=== PATIENT | male | born 1955 | race Caucasian/White ===

== ENCOUNTER 2017-09-11 18:07 | Emergency (ER) | payer OTHER ==
--- NOTE | 2017-09-11 19:48 | ER ---
Nurse's Notes [facility] Name: Ector Hanson Age: 62 yrs Sex: Male : 1955 Arrival Date: 09/11/2017 Time: 18:11 Bed 10 Private MD: Helio Ramos B Diagnosis: Cellulitis of left toe Presentation: 09/11 18:24 Presenting complaint: Patient states: "I cut my toe (left) and I have lymphedema in lk1 that leg. We tried to fix it ourselves but it seems to be infected.". Transition of care: patient was not received from another setting of care. Onset of symptoms was September 07, 2017. Risk Assessment: Do you want to hurt yourself or someone else? Patient reports no desire to harm self or others. Initial Sepsis Screen: Does the patient meet any 2 criteria? No. Patient's initial sepsis screen is negative. Does the patient have a suspected source of infection? No. Patient's initial sepsis screen is negative. Care prior to arrival: None. 18:24 Method Of Arrival: Ambulatory lk1 18:24 Acuity: DAVID 3 lk1 Historical: - Allergies: 18:26 No Known Drug Allergies; lk1 - PMHx: 18:26 lymphedema; lk1 - PSHx: 18:26 Hernia repair; lk1 - Immunization history:: Adult Immunizations up to date. - Social history:: Smoking status: Patient/guardian denies using tobacco. - Ebola Screening: : No symptoms or risks identified at this time. Screenin:07 Abuse screen: Denies threats or abuse. Nutritional screening: No deficits noted. bb Tuberculosis screening: No symptoms or risk factors identified. Fall Risk None identified. Assessment: 20:07 General: Appears in no apparent distress. Behavior is calm, cooperative. Pain: bb Complains of pain in left toe. Neuro: Level of Consciousness is awake, alert, obeys commands, Oriented to person, place, time, situation. Cardiovascular: No deficits noted. Respiratory: Respiratory effort is even, unlabored. Derm: erythema to left toe. Musculoskeletal: Circulation, motion, and sensation intact. 20:09 Reassessment: pt verbalized understanding of and agrees to plan of care discharge bb instructions given pt ambulated with steady gait to exit accompanied by family. Vital Signs: 18:27 BP 130 / 93; Pulse 67; Resp 16; Temp 98.0(TE); Pulse Ox 96% on R/A; Weight 131.54 kg lk1 (R); Height 6 ft. 4 in. (193.04 cm) (R); Pain 2/10; 20:10 BP 118 / 73; Pulse 58; Resp 16 S; Temp 96.6(O); Pulse Ox 96% on R/A; bb 18:27 Body Mass Index 35.30 (131.54 kg, 193.04 cm) lk1 ED Course: 18:11 Patient arrived in ED. mr 18:12 Helio Ramos MD is Private Physician. mr 18:26 Triage completed. lk1 18:29 Arm band placed on right wrist. lk1 19:35 [facility] Callahan [facility]. jr8 19:35 Harjinder Clements MD is Attending Physician. jr8 19:47 Ariel Dunaway DPM is Referral Physician. jr8 20:07 Patient has correct armband on for positive identification. Adult w/ patient. bb 20:07 No provider procedures requiring assistance completed. Patient did not have IV access bb during this emergency room visit. Administered Medications: No medications were administered Outcome: 19:48 Discharge ordered by . jr8 20:11 Discharged to home ambulatory, with family. bb 20:11 Condition: stable 20:11 Discharge instructions given to patient, Instructed on discharge instructions, follow up and referral plans. medication usage, Demonstrated understanding of instructions, follow-up care, medications, Prescriptions given X 2. 20:11 Patient left the ED. bb Signatures: Elizabeth Staley mr Eliz Brown, RN RN bb Timbo Callahan PA PA jr Abbi Dowling RN RN lk1
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
[2017-09-11 20:25] VITALS: O2SAT 96
[2017-09-11 20:26] VITALS: BP 118/73; TEMP 96.6
== END 2017-09-11 20:11 | disposition home or self-care (01) ==
LOC: ER 18:07
DX: L03.032 Cellulitis of left toe (principal); I89.0 Lymphedema, not elsewhere classified
CPT/HCPCS: 99282

== ENCOUNTER 2017-12-25 20:25 | Emergency (ER) | payer OTHER ==
[2017-12-25] MEDS ORDERED: IBUPROFEN 400 MG TAB ONE (21:31)
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
[2017-12-25 22:17] VITALS: BP 126/72; TEMP 98.2; O2SAT 98
--- NOTE | 2017-12-26 07:23 | RAD REPORT ---
EXAM DESCRIPTION: Shoulder Right 2 View - 12/25/2017 9:33 pm CLINICAL HISTORY: Fall, arm pain COMPARISON: None. TECHNIQUE: Internal and external rotation views of the right shoulder were obtained. FINDINGS: There is no fracture or dislocation. No spurring at the AC joint. There is mild degenerati ve change to the undersurface of the acromion. No abnormal soft tissue calcifications. No acute or vasquez spicious findings. IMPRESSION: Minimal degenerative change with no acute shoulder finding.
== END 2017-12-25 22:13 | disposition home or self-care (01) ==
LOC: ER 20:25
DX: M25.511 Pain in right shoulder (principal); Z79.82 Long term (current) use of aspirin
CPT/HCPCS: 99284

== ENCOUNTER 2018-09-28 07:04 | Day surgery (SDC) | payer OTHER ==
[2018-09-28] MEDS: PHENYLEPHRINE 10% OPTH 5ML ONE ×3 (08:08→08:18)
[2018-09-28] MEDS: CYCLOPENTOLATE 1% OPTH 2 ML ONE ×3 (08:08→08:18)
[2018-09-28] MEDS ORDERED: TETRACAINE HCL 0.5% 4ML OPTH ONE (08:16)
[2018-09-28] MEDS ORDERED: LIDOCAINE 2% MPF 5 ML VIAL ONE (08:16)
[2018-09-28] MEDS ORDERED: BUPIVACAINE 0.25% PF 10 ML VIAL ONE (08:16)
[2018-09-28] MEDS ORDERED: NA CHLORIDE 0.9% 500 ML ONE (08:17)
[2018-09-28] MEDS: LIDOCAINE HCL/PF 3.5% OPTH GEL ONE ×2 (08:43→09:03)
[2018-09-28] MEDS ORDERED: FENTANYL CITR 100 MCG/2 ML ONE (08:55)
[2018-09-28] MEDS ORDERED: MIDAZOLAM HCL 2 MG/2 ML INJ ONE (08:56)
[2018-09-28] MEDS ORDERED: NS 0.9% VIAL 10 ML ONE (09:02)
[2018-09-28] MEDS ORDERED: BALANCED SALT IRRIG PLAIN 500 ML BTL IRR ONE (09:02)
[2018-09-28] MEDS ORDERED: EPINEPHRINE/PF 1 MG/ML AMP ONE (09:02)
[2018-09-28] MEDS ORDERED: DUOVISC 1 KIT OPTH ONE (09:03)
[2018-09-28] MEDS ORDERED: LIDOCAINE 1% MPF 2 ML AMPULE ONE (09:03)
[2018-09-28] MEDS ORDERED: BSS OPTHALMIC SOL 15 ML BOT OPTH ONE (09:05)
[2018-09-28] MEDS: MOXIFLOXACIN HCL 10 DROPS/ML **OR USE OPTH ONE ×2 (09:17→09:32)
--- NOTE | 2018-09-28 09:38 | P.BOP ---
Preoperative diagnosis: Nuclear sclerotic, anterior and posterior subcapsular cataract OD Postoperative diagnosis: Same Primary procedure: Phacoemulsification with IOL OD Estimated blood loss: None Anesthesia: Local (Subtenon's infusion with anesthesia for cataract surgery) Complications: None Implants: [id number] +20.5 Transferred to: Other (Day surgery) Condition: Good
[2018-09-28 10:15] VITALS: BP 131/87; TEMP 97.7; O2SAT 96
--- NOTE | 2018-09-28 11:26 | OP ---
Date of Procedure: 09/28/2018 Surgeon: Cris Combs MD Anesthesiologist: Umer Andrews CRNA and Herson Childs MD Preoperative Diagnosis: Nuclear sclerotic posterior and anterior subcapsular cataract, right eye. Operation Performed: Phacoemulsification with intraocular lens implant, right eye. Anesthesia: Per cataract surgery. Complications: None. Description Of Procedure: In the operating room the patient was prepped and draped in the usual ster ile fashion for ophthalmic surgery. A lid speculum was placed in the right eye. Two paracentesis si denise were made superiorly and inferiorly in the limbal cornea. Viscoat was placed in the anterior salud mber and a crescent blade was used to make a corneal groove and tunnel, and a keratome was used to en ter the anterior chamber. Provisc was placed in the anterior chamber and a 360 degree capsulotomy wa s performed with a cystitome. The lens was hydrodissected with BSS and rotated freely. The lens was removed with a stop and chop technique. 8.52 phaco CDE was used to remove the lens. Residual ant x was removed with the irrigation and aspiration. Provisc was placed in the capsular bag. A ZCB00 + 20.5 lens was placed in the capsular bag without complications. Irrigation and aspiration was used t o remove residual viscoelastic. The paracentesis sites were hydrated with BSS. The wound and parace ntesis sites were inspected and found to be watertight. Vigamox 0.07 cc was placed intracamerally at the end of the procedure. The eye was irrigated with balanced salt solution. The eye was patched w ith a soft cotton patch and Duque metal shield. The patient was returned to day surgery in good condition. Comments: Akten was placed in the eye in Day Surgery and irrigated out of the eye with BSS in the OR . Preservative free 1% lidocaine was placed in the anterior chamber prior to Viscoat. Discharge Instructions: Mr. Hanson is discharged to home in good condition and is to follow up with Dr. Combs in the morning. EMMANUEL/MELLISSA Voice ID: [id number] Report ID: [id number]
== END 2018-09-28 10:05 | disposition home or self-care (01) ==
LOC: OR 07:04
PROVIDERS: ATTEND Ophthalmology Retina Specialist
PROC: 08RJ3JZ Replacement of Right Lens with Synthetic Substitute, Percutaneous Approach (ICD-10-PCS; principal; 2018-09-28 09:10)
DX: H25.11 Age-related nuclear cataract, right eye (principal); H25.031 Anterior subcapsular polar age-related cataract, right eye; E07.9 Disorder of thyroid, unspecified; E66.01 Morbid (severe) obesity due to excess calories; Z68.35 Body mass index [BMI] 35.0-35.9, adult; Z83.3 Family history of diabetes mellitus; Z82.49 Family history of ischemic heart disease and other diseases of the circulatory system
CPT/HCPCS: J0171; J2001; J2250; J3010

== ENCOUNTER 2020-09-06 17:04 | Emergency (ER) | payer OTHER ==
--- NOTE | 2020-09-06 18:42 | EDPHYS ---
Physician Documentation [facility] Name: Ector Hanson Age: 65 yrs Sex: Male : 1955 Arrival Date: 09/06/2020 Time: 17:06 Bed 5 Private MD: ED Physician Keenan Salmeron HPI: 09/06 18:37 This 65 yrs old Male presents to ER via Ambulatory with complaints of Ear cp Pain. 18:37 The patient presents with pain, that is acute. The complaints affect the right ear. cp Onset: The symptoms/episode began/occurred 2 day(s) ago. Associated signs and symptoms: Pertinent negatives: fever, rhinorrhea, sinus trouble, sore throat, vomiting. Severity of symptoms: in the emergency department the symptoms are unchanged despite home interventions. Historical: - Allergies: 17:19 No Known Drug Allergies; tw2 - Home Meds: 17:19 aspirin 81 mg Oral TbEC 1 tab once daily [Active]; tw2 - PMHx: 17:19 lymphedema; tw2 - Immunization history:: Adult Immunizations. - Social history:: Smoking status: . ROS: 18:38 Eyes: Negative for injury, pain, redness, and discharge. cp 18:38 Constitutional: Negative for body aches, chills, fever. 18:38 ENT: Positive for ear pain, Negative for sore throat, difficulty swallowing, difficulty handling secretions. 18:38 Respiratory: Negative for cough, shortness of breath, wheezing. 18:38 Abdomen/GI: Negative for abdominal pain, nausea, vomiting, and diarrhea. 18:38 Neuro: Negative for headache. 18:38 All other systems are negative. Exam: 18:39 Head/Face: Normocephalic, atraumatic. cp 18:39 Constitutional: The patient appears in no acute distress, alert, awake, comfortable, non-toxic, well developed, well nourished. 18:39 Eyes: Periorbital structures: appear normal, Conjunctiva: normal, no exudate, no injection, Sclera: no appreciated abnormality, Lids and lashes: appear normal, bilaterally. 18:39 ENT: External ear(s): are unremarkable, Ear canal(s): purulent discharge, that is minimal, in the right canal, swelling, that is minimal, of the right canal, Examination of the other ear shows no obvious abnormality, Nose: is normal, Mouth: Lips: moist, Oral mucosa: moist, Posterior pharynx: Airway: no evidence of obstruction, patent. 18:39 Chest/axilla: Inspection: normal. 18:39 Cardiovascular: Rate: normal. 18:39 Respiratory: the patient does not display signs of respiratory distress, Respirations: normal. Vital Signs: 17:17 BP 141 / 81; Pulse 60; Resp 17; Temp 97.9(TE); Pulse Ox 99% on R/A; Weight 135.17 kg tw2 (R); Height 6 ft. 4 in. (193.04 cm); 17:17 Body Mass Index 36.27 (135.17 kg, 193.04 cm) tw2 MDM: 18:37 Patient medically screened. cp Administered Medications: No medications were administered Disposition: 09/06/20 18:42 Discharged to Home. Impression: Otitis externa in other diseases classified elsewhere, right ear. - Condition is Stable. - Discharge Instructions: Otitis Externa. - Prescriptions for Ciprodex 0.3- 0.1 % Otic Drops, Suspension - instill 4 drops by OTIC route every 12 hours for 7 days , for ears ONLY. Instill drops in right ear canal as directed; 1 Container. - Medication Reconciliation Form, Thank You Letter, Antibiotic Education, Prescription Opioid Use form. - Follow up: Nasreen Newberry MD; When: 2 - 3 days; Reason: Worsening of condition. - Problem is new. - Symptoms are unchanged. Signatures: Anuj Varner PA PA cp Elizabeth Alberto RN RN Ariana Betts RN RN tw2 Corrections: (The following items were deleted from the chart) 18:49 18:42 09/06/2020 18:42 Discharged to Home. Impression: Otitis externa in other diseases hb classified elsewhere, right ear. Condition is Stable. Forms are Medication Reconciliation Form, Thank You Letter, Antibiotic Education, Prescription Opioid Use. Follow up: Nasreen Newberry; When: 2 - 3 days; Reason: Worsening of condition. Problem is new. Symptoms are unchanged. cp
--- NOTE | 2020-09-06 18:42 | ER ---
Nurse's Notes [facility] Name: Ector Hanson Age: 65 yrs Sex: Male : 1955 Arrival Date: 09/06/2020 Time: 17:06 Bed 5 Private MD: Diagnosis: Otitis externa in other diseases classified elsewhere, right ear Presentation: 09/06 17:17 Chief complaint: Patient states: my RIGHT ear has some type of infection, it feels like tw2 something is in there. Friday night i jumped in the pool and it has felt like i cant get the water out of my ear. Coronavirus screen: At this time, the client does not indicate any symptoms associated with coronavirus-19. Ebola Screen: Patient denies travel to an Ebola-affected area in the 21 days before illness onset. Initial Sepsis Screen: Does the patient meet any 2 criteria? No. Patient's initial sepsis screen is negative. Does the patient have a suspected source of infection? No. Patient's initial sepsis screen is negative. Risk Assessment: Do you want to hurt yourself or someone else? Patient reports no desire to harm self or others. Onset of symptoms was September 06, 2020. 17:17 Method Of Arrival: Ambulatory tw2 17:17 Acuity: DAVID 4 tw2 Triage Assessment: 17:19 General: Appears in no apparent distress. Behavior is calm, cooperative, appropriate tw2 for age. Pain: Complains of pain in right ear. EENT: Reports pain in right ear. Historical: - Allergies: 17:19 No Known Drug Allergies; tw2 - Home Meds: 17:19 aspirin 81 mg Oral TbEC 1 tab once daily [Active]; tw2 - PMHx: 17:19 lymphedema; tw2 - Immunization history:: Adult Immunizations. - Social history:: Smoking status: . Screenin:35 Abuse screen: Denies threats or abuse. Denies injuries from another. Nutritional hb screening: No deficits noted. Tuberculosis screening: No symptoms or risk factors identified. Fall Risk None identified. Assessment: 18:35 General: Appears in no apparent distress. Behavior is calm, cooperative. Pain: Pain hb currently is 3 out of 10 on a pain scale. Neuro: Level of Consciousness is awake, alert, obeys commands, Oriented to person, place, time, situation. Cardiovascular: Patient's skin is warm and dry. Respiratory: Respiratory effort is even, unlabored, Respiratory pattern is regular, symmetrical. GI: No signs and/or symptoms were reported involving the gastrointestinal system. : No signs and/or symptoms were reported regarding the genitourinary system. EENT: Reports right ear pain. Derm: Skin is pink, warm \T\ dry. Musculoskeletal: No signs and/or symptoms reported regarding the musculoskeletal system. Vital Signs: 17:17 BP 141 / 81; Pulse 60; Resp 17; Temp 97.9(TE); Pulse Ox 99% on R/A; Weight 135.17 kg tw2 (R); Height 6 ft. 4 in. (193.04 cm); 17:17 Body Mass Index 36.27 (135.17 kg, 193.04 cm) tw2 ED Course: 17:06 Patient arrived in ED. ds1 17:18 Triage completed. tw2 17:19 Arm band placed on. tw2 18:33 Anuj Varner PA is PHCP. cp 18:33 Keenan Salmeron MD is Attending Physician. cp 18:35 Patient has correct armband on for positive identification. Call light in reach. Side hb rails up X 1. 18:41 Nasreen Newberry MD is Referral Physician. cp 18:48 No provider procedures requiring assistance completed. Patient did not have IV access hb during this emergency room visit. Administered Medications: No medications were administered Outcome: 18:42 Discharge ordered by MD. cp 18:48 Discharged to home ambulatory. hb 18:48 Condition: stable 18:48 Discharge instructions given to patient, Instructed on discharge instructions, follow up and referral plans. medication usage, Demonstrated understanding of instructions, follow-up care, medications, Prescriptions given X 1. 18:49 Patient left the ED. hb Signatures: Ksenia Morales ds1 Anuj Varner PA PA cp Elizabeth Alberto RN RN Ariana Betts RN RN tw2
[2020-09-06 19:18] VITALS: BP 141/81; TEMP 97.9; O2SAT 99
== END 2020-09-06 18:49 | disposition home or self-care (01) ==
LOC: ER 17:04
DX: H60.91 Unspecified otitis externa, right ear (principal); Z79.82 Long term (current) use of aspirin

== ENCOUNTER 2020-12-21 06:18 | Day surgery (SDC) | payer OTHER ==
[2020-12-21] MEDS ORDERED: MOXIFLOXACIN HCL 0.5% 3ML OPTH OPTH ONE (06:51)
[2020-12-21] MEDS ORDERED: PHENYLEPHRINE 2.5% OPTH 2 ML ONE (06:51)
[2020-12-21] MEDS ORDERED: KETOROLAC OPTHALMIC 5 ML BOT ONE (06:51)
[2020-12-21] MEDS ORDERED: CYCLOPENTOLATE 2% OPTH 2 ML ONE (06:51)
[2020-12-21] MEDS ORDERED: TROPICAMIDE 1% OPTH 3 ML BOT ONE (06:51)
[2020-12-21] MEDS ORDERED: Ringers Lactate 1,000 ML IV ONE (06:52)
[2020-12-21] MEDS ORDERED: BSS PLUS 500 ML BOTTLE IRR ONE (07:22)
[2020-12-21] MEDS ORDERED: EPINEPHRINE/PF 1 MG/ML AMP ONE (07:22)
[2020-12-21] MEDS ORDERED: TOBRADEX 0.3-0.1% OPTH OINTMENT ONE (07:22)
[2020-12-21] MEDS ORDERED: BSS OPTHALMIC SOL 15 ML BOT OPTH ONE ×2 (07:22→08:22)
[2020-12-21] MEDS ORDERED: DUOVISC 1 KIT OPTH ONE (07:23)
[2020-12-21] MEDS ORDERED: POVIDONE-IODINE 5% EYE DROPS ONE (07:23)
[2020-12-21] MEDS ORDERED: FENTANYL CITR 100 MCG/2 ML ONE (07:34)
[2020-12-21] MEDS ORDERED: dexAMETHasone 10 MG/ML VIAL ONE (07:34)
[2020-12-21] MEDS ORDERED: MIDAZOLAM HCL 2 MG/2 ML INJ ONE (07:34)
[2020-12-21] MEDS ORDERED: propofoL 200 MG/20 ML VIAL IV ONE (07:34)
[2020-12-21] MEDS ORDERED: ONDANSETRON 4 MG/2 ML VIAL ONE (07:35)
[2020-12-21] MEDS ORDERED: KETOROLAC 30 MG/ML INJ ONE (07:35)
[2020-12-21] MEDS ORDERED: LIDOCAINE 2% MPF 5 ML VIAL ONE (07:35)
[2020-12-21] MEDS ORDERED: LIDOCAINE 1% MPF 2 ML AMPULE ONE (08:15)
[2020-12-21] MEDS ORDERED: HYALURONATE SODIUM 10 MG/ML SYR OPTH ONE (08:15)
[2020-12-21] MEDS: LIDOCAINE HCL/PF 3.5% OPTH GEL ONE ×2 (08:17→08:23)
[2020-12-21 10:16] VITALS: TEMP 97.1; O2SAT 100
[2020-12-21 10:17] VITALS: BP 133/67
--- NOTE | 2020-12-21 20:41 | OP ---
Date of Procedure: 12/21/2020 Surgeon: Saul Bardales MD Home Health Nurse Licensed Practical: None. Preoperative Diagnosis: Visually significant cataract, left eye. Postoperative Diagnosis: Visually significant cataract, left eye. Procedure Performed: Cataract extraction of left eye with placement of sulcus intraocular lens with optic capture and limited anterior vitrectomy. Description Of Procedure: After being properly identified in the preoperative holding, the patient w as taken back to the operating room where a time-out was performed. The patient was then prepped and draped in the normal sterile fashion. Examination of the eye underneath the operating microscope re vealed good dilation and a cataract with an obvious posterior capsule component on retro elimination through the operating microscope. The globe was grasped with a pair of 0.12 forceps and paracentesis wounds were made superiorly and inferiorly at 6 and 12 o'clock using a 1.0 mm keratome. Preservativ e-free lidocaine was injected into the anterior chamber followed by Viscoat. The globe was then regr asped and the main phaco incision wound was made temporally with a 2.75 mm keratome [facility] a [facility] and a capsulotomy was created using a cystotome and completed with Utrata forceps. Hydrodissec tion and hydrodelineation were carried out using a King cannula. Thereafter, the lens was removed i n a systematic divide and conquer technique fashion. After all those have been made and the lens nuc leus cracked, the quadrants were removed individually. However, after removal of the first quadrant, it became apparent that there was a posterior capsule hole naso inferiorly. The phacoemulsification was stopped. Additional viscoelastic added and the phaco handpiece removed. I set up for an anteri or vitrectomy using a 20-gauge vitrector and a limited anterior vitrectomy was carried out and rom ramsay of the density of the nucleus, I was able to remove the additional nuclear components using the vit rectomy only. After the second quadrant was removed, the additional viscoelastic was added and the f inal quadrants floated into the anterior chamber and an Сергей model [id number] was loaded and injected in to the eye and placed with the lens haptics in the sulcus and the optic captured in order to create a barrier and prevent any nuclear pieces from falling into the posterior capsule. These pieces were t hen removed with the vitrector. Of note, there was a small amount of cuffing on the posterior traili ng haptic which did not completely unfold because the open capsule was not exchanged and the lens did center well with no effort. Once all of the nuclear material had been removed as much cortical mate rial as could be removed safely using the vitrector was removed and thereafter 2 interrupted 10-0 nyl on sutures were placed to the main phaco incision wound and the paracentesis wounds were hydrated. A t the conclusion, there was a well-centered 3 piece IOL in the sulcus with optic capture through the anterior capsulotomy, which was intact 360 degrees. A small amount of residual posterior capsule brodie ris which could easily be yagged later and a clear cornea. There was no loss of any nuclear material into the vitreous and the fact no vitreous was seen throughout the procedure. Again, there was note d a large portion of the procedure was carried out with the vitrector in case any vitreous did presen t itself. The pupil was well-formed and round. The patient was pressure patched over antibiotic oin tment and is to follow up with myself, Dr. Saul Bardales, at the [facility] tomorrow m tereso. Estimated Blood Loss: Less than 5 mL. Complications: As described above. There were no specimen sent or drains placed. JPG/MODL Voice ID: [id number] Report ID: [id number]
== END 2020-12-21 10:10 | disposition home or self-care (01) ==
LOC: OR 06:18
PROVIDERS: ATTEND Ophthalmology
PROC: 08B53ZZ Excision of Left Vitreous, Percutaneous Approach (ICD-10-PCS; 2020-12-21)
PROC: 08RK3JZ Replacement of Left Lens with Synthetic Substitute, Percutaneous Approach (ICD-10-PCS; principal; 2020-12-21 07:30)
DX: H26.9 Unspecified cataract (principal); H54.62 Unqualified visual loss, left eye, normal vision right eye; Z20.822 Contact with and (suspected) exposure to COVID-19
CPT/HCPCS: 66984; 67036; U0003; J0171; J2250; J3010; J7120; J2405; J1100; J2704; J3490

== ENCOUNTER 2023-06-17 17:56 | Emergency (ER) | payer OTHER ==
[2023-06-17] MEDS ORDERED: TETRACAINE HCL 0.5% 4ML OPTH ONE (19:20)
[2023-06-17] MEDS ORDERED: FLUORESCEIN SODIUM 1 MG/WRAP ONE (19:20)
--- NOTE | 2023-06-17 19:37 | EDPHYS ---
Physician Documentation [facility] Name: Ector Hanson Age: 68 yrs Sex: Male : 1955 Arrival Date: 06/17/2023 Time: 17:56 Bed 12 Private MD: ED Physician Gary Avelar HPI: 06/16 20:26 This 68 yrs old Male presents to ER via Ambulatory with complaints of Foreign Body In rt Eye. 20:26 Patient presents to the ED with redness, foreign body sensation to the left eye for rt about 3 days. Denies any discrete injury. Denies other acute complaints at this time, symptoms are mild in severity, no other aggravating or alleviating factors.. Historical: - Allergies: 18:29 No Known Allergies; nj1 - PMHx: 18:29 lymphedema; Hypothyroidism; nj1 - Immunization history:: Client reports having NOT received the Covid vaccine. - Infectious Disease History:: Denies. - Social history:: Smoking status: Patient denies any tobacco usage or history of. - Family history:: not pertinent. ROS: 20:26 Constitutional: Negative for fever, chills, and weight loss, Cardiovascular: Negative rt for chest pain, palpitations, and edema, Respiratory: Negative for shortness of breath, cough, wheezing, and pleuritic chest pain, Abdomen/GI: Negative for abdominal pain, nausea, vomiting, diarrhea, and constipation, Skin: Negative for injury, rash, and discoloration, Neuro: Negative for headache, weakness, numbness, tingling, and seizure, 20:26 Eyes: Positive for foreign body sensation, pain, Exam: 20:26 Constitutional: This is a well developed, well nourished patient who is awake, alert, rt and in no acute distress. Head/Face: Normocephalic, atraumatic. Chest/axilla: Normal chest wall appearance and motion. Nontender with no deformity. No lesions are appreciated. Cardiovascular: Regular rate and rhythm with a normal S1 and S2. No gallops, murmurs, or rubs. Normal PMI, no JVD. No pulse deficits. Abdomen/GI: Soft, non-tender, with normal bowel sounds. No distension or tympany. No guarding or rebound. No evidence of tenderness throughout. MS/ Extremity: Pulses equal, no cyanosis. Neurovascular intact. Full, normal range of motion. Neuro: Awake and alert, GCS 15, oriented to person, place, time, and situation. Cranial nerves II-XII grossly intact. Motor strength 5/5 in all extremities. Sensory grossly intact. Cerebellar exam normal. Normal gait. 20:26 Eyes: Conjunctival injection of the left eye, right eye is clear. Pupils equally round and reactive to light. No focal areas of fluorescein uptake, fluorescein stain is negative, eyelids were inverted, no foreign bodies identified.. Vital Signs: 18:27 Pulse 61; Resp 18; Temp 97.2(TE); Pulse Ox 97% ; Weight 129.27 kg; Height 6 ft. 4 in. ; nj1 19:45 BP 139 / 79; Pulse 63; Resp 17; Pulse Ox 98% ; jj7 18:27 Body Mass Index 34.69 (129.27 kg, 193.04 cm) nj1 MDM: 19:24 Patient medically screened. rt 20:26 Differential diagnosis: Conjunctivitis, foreign body, corneal abrasion. Data reviewed: rt vital signs, nurses notes. Counseling: I had a detailed discussion with the patient and/or guardian regarding the historical points, exam findings, and any diagnostic results supporting the discharge/admit diagnosis, the need for outpatient follow up, to return to the emergency department if symptoms worsen or persist or if there are any questions or concerns that arise at home. Response to treatment: the patient's symptoms have markedly improved after treatment. 06/16 19:28 Order name: Eye Tray; Complete Time: 20:09 rt 06/16 19:28 Order name: Fluoresene Opth strip; Complete Time: 20:09 rt Administered Medications: 20:00 Drug: Tetracaine Ophthalmic Drops 0.5 % 1 drops Ophthalmic once Route: Ophthalmic; pf1 Site: left eye; 20:17 Follow up: Response: Marked relief of symptoms jj7 Disposition Summary: 06/17/23 19:36 Discharge Ordered Notes: Location: Home rt Problem: new rt Symptoms: are unchanged rt Condition: Stable rt Diagnosis - Other conjunctivitis rt Followup: rt - With: Private Physician - When: 2 - 3 days - Reason: Discharge Instructions: - Discharge Summary Sheet rt - Viral Conjunctivitis, Adult rt Forms: - Medication Reconciliation Form rt - Thank You Letter rt - Antibiotic Education rt - Prescription Opioid Use rt - Patient Portal Instructions rt - Leadership Thank You Letter rt Prescriptions: - Erythromycin 5 mg/gram (0.5 %) Ophthalmic ointment - apply 1 centimeter OPHTHALMIC route 2-3 times daily for 7 days; 1 Each; rt Refills: 0, Product Selection Permitted Signatures: Gary Avelar MD MD rt Fina Matthews RN RN pf1 Charlee Cano RN RN nj1 [place] RN jj7
--- NOTE | 2023-06-17 19:37 | ER ---
Nurse's Notes [facility] Name: Ector Hanson Age: 68 yrs Sex: Male : 1955 Arrival Date: 06/17/2023 Time: 17:56 Bed 12 Private MD: Diagnosis: Other conjunctivitis Presentation: 06/16 18:27 Chief complaint: Patient states: Left eye redness, irritation for 3 days. Not getting nj1 better. Coronavirus screen: Vaccine status: Patient reports being unvaccinated. Ebola Screen: Patient denies travel to an Ebola-affected area in the 21 days before illness onset. Initial Sepsis Screen: Does the patient meet any 2 criteria? No. Patient's initial sepsis screen is negative. Does the patient have a suspected source of infection? No. Patient's initial sepsis screen is negative. Risk Assessment: Do you want to hurt yourself or someone else? Patient reports no desire to harm self or others. Onset of symptoms was June 15, 2023. 18:27 Method Of Arrival: Ambulatory [facility] 18:27 Acuity: DAVID 4 nj1 Triage Assessment: 18:30 General: Appears in no apparent distress. comfortable, Behavior is calm, cooperative, nj1 appropriate for age. Pain: Denies pain. Historical: - Allergies: 18:29 No Known Allergies; nj1 - PMHx: 18:29 lymphedema; Hypothyroidism; nj1 - Immunization history:: Client reports having NOT received the Covid vaccine. - Infectious Disease History:: Denies. - Social history:: Smoking status: Patient denies any tobacco usage or history of. - Family history:: not pertinent. Screenin:20 [facility] ED Fall Risk Assessment (Adult) History of falling in the last 3 months, jj7 including since admission No falls in past 3 months (0 pts). [facility] ED Fall Risk Assessment (Adult) Confusion or Disorientation No (0 pts) Intoxicated or Sedated No (0 pts) Impaired Gait No (0 pts) Mobility Assist Device Used No (0 pt) Altered Elimination No (0 pt) Score/Fall Risk Level 0 - 2 = Low Risk Oriented to surroundings, Maintained a safe environment, Educated pt \T\ family on fall prevention, incl call for assistance when getting out of bed. Abuse screen: Denies threats or abuse. Nutritional screening: No deficits noted. Tuberculosis screening: No symptoms or risk factors identified. Assessment: 19:20 General: Appears in no apparent distress. uncomfortable, Behavior is calm, cooperative, jj7 appropriate for age. Pain: Complains of pain in left eye. EENT: Reports pain in left eye. Vital Signs: 18:27 Pulse 61; Resp 18; Temp 97.2(TE); Pulse Ox 97% ; Weight 129.27 kg; Height 6 ft. 4 in. ; nj1 19:45 BP 139 / 79; Pulse 63; Resp 17; Pulse Ox 98% ; jj7 18:27 Body Mass Index 34.69 (129.27 kg, 193.04 cm) nj1 ED Course: 17:59 Patient arrived in ED. im 18:25 Gary Avelar MD is Attending Physician. rt 18:29 Triage completed. nj1 18:30 Arm band placed on left wrist. nj1 19:20 Patient has correct armband on for positive identification. Bed in low position. Call jj7 light in reach. Provided Education on: use of call sanchez. 19:20 No provider procedures requiring assistance completed. Patient did not have IV access jj7 during this emergency room visit. Administered Medications: 20:00 Drug: Tetracaine Ophthalmic Drops 0.5 % 1 drops Ophthalmic once Route: Ophthalmic; pf1 Site: left eye; 20:17 Follow up: Response: Marked relief of symptoms jj7 Medication: 19:20 VIS not applicable for this client. jj7 Outcome: 19:36 Discharge ordered by . rt 20:16 Discharged to home ambulatory, pf1 20:16 Condition: improved 20:16 Discharge instructions given to patient, Instructed on discharge instructions, follow up and referral plans. Demonstrated understanding of instructions, follow-up care, medications, Prescriptions given X 1, 20:17 Patient left the ED. pf1 Signatures: [place] RN RN jj7 Gary Avelar MD MD rt Fina Matthews RN RN pf1 Charlee Cano RN RN nj1 Deborah Grant im
[2023-06-17 22:44] VITALS: TEMP 97.2; O2SAT 97
== END 2023-06-17 20:17 | disposition home or self-care (01) ==
LOC: ER 17:56
DX: H10.89 Other conjunctivitis (principal)
CPT/HCPCS: 99283